=== PATIENT | male | born 1995 | race Caucasian/White ===

== ENCOUNTER 2022-09-14 07:54 | Emergency (ER) | payer MEDICAID ==
[~2022-09-14] VITALS: Ht 172.7 cm; Wt 72.6 kg
--- NOTE | 2022-09-14 08:00 | NUR ---
PATIENT TO LOBBY
[2022-09-14 08:04] VITALS: BP 140/98
--- NOTE | 2022-09-14 08:11 | NUR ---
pt refusing new set of vitals at this time
[2022-09-14 09:00] VITALS: BP 140/98
--- NOTE | 2022-09-14 09:00 | NUR ---
PATIENT LEFT WITHOUT BEING SEEN BY DR.DELA GUSMAN. NO FURTHER CARE PROVIDED FOR PATIENT.
== END 2022-09-14 09:00 | disposition left against medical advice (07) ==
LOC: MED 07:54
DX: M79.671 Pain in right foot (principal); M79.672 Pain in left foot; Z53.21 Procedure and treatment not carried out due to patient leaving prior to being seen by health care provider